=== PATIENT | female | born 1965 | race Caucasian/White ===

== ENCOUNTER 2023-07-20 22:39 | Emergency (ER) | payer MEDICAID ==
[~2023-07-20] VITALS: Ht 152.4 cm; Wt 70.0 kg
[2023-07-20 22:46] VITALS: BP 148/76; PULSE 103; RESP 24; TEMP 98; O2SAT 98
[2023-07-20] MEDS ORDERED: MORPHINE SULFATE 4 MG/ML CPJ (NOT FOR IM USE) IV STA (22:50)
[2023-07-20] MEDS ORDERED: ONDANSETRON HCL 4MG/2ML INJ IV STA (22:50)
[2023-07-20] MEDS ORDERED: SODIUM CHLORIDE 0.9% 1,000 ML IV ONE (23:00)
[2023-07-20 23:06] LABS: BASOPHILS % 0.6 % (0.0-2.0); EOSINOPHILS % 2.9 % (0.0-5.0); HEMATOCRIT. 37.3 % (36.0-48.0); HEMOGLOBIN. 12.6 g/dL (12.0-16.0); LYMPHOCYTES % 48.8 % (20.0-50.0); MEAN CORPUSCULAR HEMOGLOBIN 27.7 pg (28.0-32.0); MEAN CORPUSCULAR HGB CONC 33.6 g/dL (31.0-37.0); MEAN CORPUSCULAR VOLUME 82.5 fL (81.0-99.0); MEAN PLATELET VOLUME 7.1 fl (7.4-10.4); MONOCYTES % 10.2 % (2.0-8.0); NEUTROPHILS % 37.5 % (40.0-76.0); PLATELET 280 x1000/uL (130-400); RED BLOOD CELL COUNT 4.53 mill/uL (4.2-5.4); RED CELL DISTRIBUTION WIDTH 14.3 % (11.6-14.6); WHITE BLOOD COUNT 6.3 x1000/uL (4.5-11.0)
[2023-07-20 23:14] LABS: CHLORIDE 109 mEq/L (98-107); INDEX HEMOLYSI 1 (1-3); INDEX ICTERIC 1 (1-4); INDEX LIPEMIC 1 (1-3); POTASSIUM 3.5 mEq/L (3.5-5.1); SODIUM 137 mEq/L (136-145)
[2023-07-20 23:20] LABS: ALANINE AMINOTRANSFERASE 53 IU/L (13-61); ALBUMIN 3.7 g/dL (3.4-5.0); ASPARTATE AMINOTRANSFERASE 30 IU/L (15-37); BILIRUBIN TOTAL 0.3 mg/dL (0.1-1.0); CALCIUM 8.8 mg/dL (8.5-10.1); CARBON DIOXIDE 24 mEq/L (21-32); CREATININE 0.8 mg/dL (0.6-1.3); GLUCOSE 121 mg/dL (70-105); PROTEIN TOTAL 7.5 g/dL (6.0-8.3); UREA NITROGEN BLOOD 10 mg/dL (7-21)
[2023-07-21] MEDS ORDERED: KETAMINE HCL 50 MG/ML 10ML IV ONE (02:00)
[2023-07-21] MEDS ORDERED: ONDANSETRON HCL 4MG/2ML INJ IV ONE (02:00)
[2023-07-21] MEDS ORDERED: MORPHINE SULFATE 4 MG/ML CPJ (NOT FOR IM USE) IV ONE (02:00)
[2023-07-21] MEDS ORDERED: IOHEXOL-300 100 ML BOTTLE ONE (03:33)
[2023-07-21] MEDS ORDERED: HYDR-4001 MT (05:55)
== END 2023-07-21 10:18 | disposition home or self-care (01) ==
LOC: ER 22:39
DX: S82.832A Other fracture of upper and lower end of left fibula, initial encounter for closed fracture (principal); V09.20XA Pedestrian injured in traffic accident involving unspecified motor vehicles, initial encounter; Y93.89 Activity, other specified; Y92.89 Other specified places as the place of occurrence of the external cause; Y99.8 Other external cause status
CPT/HCPCS: 80053; 85025; 86850; 86900; 86901; 36415; 71045; 73080; 73590; 73610 ×2; 73620; 70450; 70486; 71260; 72125; 74177; 27788; 96361; 96374; 96375; 99152; 99285; 96376; J2405 ×2; J2270 ×2; J7030; Z7610 ×4; Q9967; J3490